=== PATIENT | female | born 1960 | race Two or more races ===

== ENCOUNTER 2021-06-06 20:11 | Emergency (ER) | payer OTHER ==
[~2021-06-06] VITALS: Ht 160 cm; Wt 104.3 kg
[2021-06-06 20:25] VITALS: BP 113/66
--- NOTE | 2021-06-06 20:25 | NUR ---
TO BED AMBULATORY
--- NOTE | 2021-06-06 20:40 | NUR ---
Dr. Loomis examining patient.
--- NOTE | 2021-06-06 20:41 | NUR ---
REPORTS DIZZINESS AND SYNCOPE EPISODE EARLIER TODAY AT HOME. CHECKED SUGAR AND READ 545 AT HOME, REPEATED AN HOUR LATER AND WAS STILL GREATER THAN 500. NO PREVIOUS HISTORY OF DIABETES. HAS HX OF CANCER AND LIVER CIRRHOSIS.
[2021-06-06] MEDS ORDERED: NACL 0.9% 1,000 ML IV ONE ×2 (20:45→21:50)
[2021-06-06] MEDS ORDERED: MECLIZINE 25 MG TAB PO ONE (20:45)
[2021-06-06 21:28] LABS: BASOPHILS # (AUTO) 0.1 K/uL (0.00-0.22); BASOPHILS % (AUTO) 1.3 % (0.0-2.0); EOSINOPHILS # (AUTO) 0.1 K/uL (0-0.4); EOSINOPHILS % (AUTO) 2.9 % (0.0-4.0); HEMATOCRIT 36.8 % (36-48); HEMOGLOBIN 12.6 g/dL (12.0-16.0); LYMPHOCYTES # (AUTO) 1.7 K/uL (2.5-16.5); LYMPHOCYTES % (AUTO) 35.6 % (20.5-51.1); MEAN CORPUSCULAR HEMOGLOBIN 29 pg (27-31); MEAN CORPUSCULAR HGB CONC 34 g/dL (33-37); MEAN CORPUSCULAR VOLUME 83.6 fL (80-94); MONOCYTES # (AUTO) 0.5 K/uL (0.8-1.0); MONOCYTES % (AUTO) 9.7 % (1.7-9.3); NEUTROPHILS # (AUTO) 2.5 K/uL (1.8-7.7); NEUTROPHILS % (AUTO) 50.5 % (42.2-75.2); PLATELET COUNT (AUTO) 149 K/uL (140-450); RED CELL DISTRIBUTION WIDTH 16.8 % (11.6-13.7); WHITE BLOOD COUNT (AUTO) 4.9 K/uL (4.8-10.8)
[2021-06-06 21:46] LABS: ALBUMIN 3.2 g/dL (3.4-5.0); ANION GAP 12.6 (8-16); CARBON DIOXIDE 26.6 mmol/L (21-32); CREATININE 1.1 mg/dL (0.6-1.3); POTASSIUM 3.2 mmol/L (3.5-5.1); TOTAL BILIRUBIN 1.1 mg/dL (0.0-1.0)
[2021-06-06] MEDS ORDERED: METF-1243 PO (21:57)
[2021-06-06] MEDS ORDERED: CODE-107 PO (22:27)
[2021-06-06] MEDS ORDERED: PROMETH/CODEINE 6.25-10MG/5ML 5 ML UDC PO ONE (22:30)
[2021-06-06 22:33] LABS: APPEARANCE,URINE CLEAR (CLEAR); BILIRUBIN,URINE NEGATIVE (NEGATIVE); BLOOD, URINE NEGATIVE (NEGATIVE); COLOR,URINE YELLOW (YELLOW); LEUKOCYTE ESTERASE ,URINE NEGATIVE (NEGATIVE); NITRITE, URINE NEGATIVE (NEGATIVE); PH,URINE 5.5 (5.0-9.0); UGLUCOSE 3+ (NEGATIVE)
[2021-06-06 22:44] LABS: RBC,URINE 0-5 /HPF (0-5); WBC,URINE 0-5 /HPF (0-5)
[2021-06-06 22:45] LABS: CALCIUM OXALATE CRYSTALS,UR 0-5 /HPF (None Seen)
--- NOTE | 2021-06-06 23:02 | NUR ---
PATIENT CLEARED FOR DISHCARGE AT THIS TIME. ADVISED TO FOLLOW UP WITH PCP AND RETURN IF CONDITION WORSENS. NO OTHER COMPLAINTS OR CONCERNS AT THIS TIME FOLLOWING DISCHARGE TEACHING.
[2021-06-06 23:03] VITALS: BP 122/73
[2021-06-07] MEDS ORDERED: LANC1COM6 MC (16:56)
[2021-06-07] MEDS ORDERED: BLOO1EAC9 MC (16:56)
[2021-06-07] MEDS ORDERED: AMOX-1000 PO (16:56)
== END 2021-06-06 23:02 | disposition home or self-care (01) ==
LOC: MED 20:11
DX: E11.65 Type 2 diabetes mellitus with hyperglycemia (principal); R42 Dizziness and giddiness; J18.9 Pneumonia, unspecified organism; Z79.899 Other long term (current) drug therapy
CPT/HCPCS: 36415; 71045; 80053; 81001; 83605; 83690; 85025; 93005; 96360; 99285; J7030; J8597; Q0092

== ENCOUNTER 2021-10-03 07:00 | Emergency (ER) | payer OTHER ==
[~2021-10-03] VITALS: Ht 162.6 cm; Wt 81.6 kg
[~2021-10-03 07:00] MED LIST: AMOX-1000 PO; BLOO1EAC9 MC; CODE-107 PO; LANC1COM6 MC; METF-1243 PO
[2021-10-03 07:04] VITALS: BP 144/76
--- NOTE | 2021-10-03 07:07 | NUR ---
TO BED AMBULATORY
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
[2021-10-03] MEDS ORDERED: LIDOCAINE 2% 1000 MG/50 ML VIAL INJ ONE (07:25)
--- NOTE | 2021-10-03 07:50 | NUR ---
pt's lac cleaned and irrigated with warm water and lac tray set up at bed side. ermd notified.
[2021-10-03] MEDS ORDERED: BACI-389 TP (08:02)
== END 2021-10-03 08:10 | disposition home or self-care (01) ==
LOC: MED 07:00
DX: S01.81XA Laceration without foreign body of other part of head, initial encounter (principal); Z79.899 Other long term (current) drug therapy; Z79.2 Long term (current) use of antibiotics; W22.8XXA Striking against or struck by other objects, initial encounter; Y92.89 Other specified places as the place of occurrence of the external cause; Y93.89 Activity, other specified; Y99.8 Other external cause status
CPT/HCPCS: 12011; 90471; 90715; 99283; J2001

== ENCOUNTER 2022-10-11 18:02 | Emergency (ER) | payer OTHER ==
[~2022-10-11] VITALS: Ht 165.1 cm; Wt 99.8 kg
[~2022-10-11 18:02] MED LIST changes: +BACI-389 TP
[2022-10-11 18:28] VITALS: BP 132/79; PULSE 95; RESP 16; TEMP 98.1; O2SAT 99
[2022-10-11] MEDS ORDERED: IBUP-2213 PO (20:04)
[2022-10-11] MEDS ORDERED: ACET-10509 PO (20:04)
--- NOTE | 2022-10-11 20:05 | NUR ---
PT TO LOBBY
--- NOTE | 2022-10-11 21:06 | NUR ---
2044- called for splinting, no response from pt. 2054- called for splinting, no response from pt. 2103- called for splinting, no response from pt. BS
--- NOTE | 2022-10-11 21:08 | NUR ---
ATTEMPTED TO CALL PATIENT. PATIENT ELOPED FROM FACILITY. DISCHARGE INSTRUCTIONS NOT GIVEN TO PATIENT. DR. ALFONSO NOTIFIED.
== END 2022-10-11 21:05 | disposition left against medical advice (07) ==
LOC: MED 18:02
DX: S63.591A Other specified sprain of right wrist, initial encounter (principal); S50.01XA Contusion of right elbow, initial encounter; M25.532 Pain in left wrist; Z79.899 Other long term (current) drug therapy; W01.0XXA Fall on same level from slipping, tripping and stumbling without subsequent striking against object, initial encounter; Y93.89 Activity, other specified; Y92.89 Other specified places as the place of occurrence of the external cause; Y99.8 Other external cause status
CPT/HCPCS: 73080; 73110; 99284

== ENCOUNTER 2023-07-08 19:09 | Inpatient (IN) | payer BC, OTHER ==
[~2023-07-08] VITALS: Ht 167.6 cm; Wt 98.9 kg
[~2023-07-08 19:09] MED LIST changes: +ACET-10509 PO; +IBUP-2213 PO
[2023-07-08 19:10] VITALS: BP 117/70; PULSE 94; RESP 22; TEMP 97.6; O2SAT 97
[2023-07-08 20:48] LABS: BASOPHILS % (AUTO) 1.3 % (0.0-2.0); EOSINOPHILS # (AUTO) 0.1 K/uL (0-0.4); EOSINOPHILS % (AUTO) 3.7 % (0.0-4.0); HEMATOCRIT 37.1 % (36-48); HEMOGLOBIN 12.6 g/dL (12.0-16.0); LYMPHOCYTES # (AUTO) 0.8 K/uL (2.5-16.5); LYMPHOCYTES % (AUTO) 36.5 % (20.5-51.1); MEAN CORPUSCULAR HEMOGLOBIN 30 pg (27-31); MEAN CORPUSCULAR HGB CONC 34 g/dL (33-37); MEAN CORPUSCULAR VOLUME 89.8 fL (80-94); MONOCYTES # (AUTO) 0.2 K/uL (0.8-1.0); MONOCYTES % (AUTO) 9.9 % (1.7-9.3); NEUTROPHILS % (AUTO) 48.6 % (42.2-75.2); PLATELET COUNT (AUTO) 94 K/uL (140-450); RED BLOOD CELL COUNT(AUTO) 4.13 MIL/uL (4.20-5.40); RED CELL DISTRIBUTION WIDTH 17.2 % (11.6-13.7); WHITE BLOOD COUNT (AUTO) 2.1 K/uL (4.8-10.8)
[2023-07-08] MEDS: ONDANSETRON 4 MG/2 ML VIAL IVP ONE (20:51)
[2023-07-08] MEDS: NACL 0.9% 500 ML IV ONE (20:55)
[2023-07-08 21:01] LABS: APPEARANCE,URINE SL CLOUDY (CLEAR); BILIRUBIN,URINE NEGATIVE (NEGATIVE); BLOOD, URINE 1+ (NEGATIVE); COLOR,URINE YELLOW (YELLOW); LEUKOCYTE ESTERASE ,URINE NEGATIVE (NEGATIVE); NITRITE, URINE NEGATIVE (NEGATIVE); PROTEIN,URINE NEGATIVE (NEGATIVE); UGLUCOSE 3+ (NEGATIVE)
[2023-07-08 21:04] LABS: ANION GAP 9.6 (8-16); CALCIUM 8.6 mg/dL (8.5-10.1); CARBON DIOXIDE 25.3 mmol/L (21-32); CREATININE 1.1 mg/dL (0.6-1.3); INR 1.16 (0.8-1.2); POTASSIUM 3.9 mmol/L (3.5-5.1); PROTHROMBIN TIME 12.1 secs (10.8-13.4)
[2023-07-08 21:11] LABS: LACTIC ACID 1.6 mmol/L (0.4-2.0)
[2023-07-08 21:12] LABS: BACTERIA,URINE FEW /HPF (None Seen); SQUAMOUS EPITHELIAL CELL,UR 4-10 (MOD) /LPF (0-3 (FEW)); WBC,URINE 0-5 /HPF (0-5)
[2023-07-08 21:17] LABS: ALANINE AMINOTRANSFERASE 36 U/L (12-78); ALBUMIN 2.2 g/dL (3.4-5.0); ALKALINE PHOSPHATASE 169 U/L (50-136); ASPARTATE AMINOTRANSFERASE 66 U/L (15-37); BILIRUBIN,DIRECT 0.4 mg/dL (0.0-0.3); LIPASE 31 U/L (16-77); MAGNESIUM 1.7 mg/dL (1.8-2.4); PHOSPHORUS 1.9 mg/dL (2.5-4.9); TOTAL BILIRUBIN 0.7 mg/dL (0.0-1.0); TOTAL PROTEIN, SERUM 7.1 g/dL (6.4-8.2)
[2023-07-09] VITALS (7 sets, daily range): BP systolic 103–121; BP diastolic 57–68; PULSE 83–96; RESP 18–20; TEMP 97.2–97.6; O2SAT 96–98
[2023-07-09] MEDS ORDERED: cefTRIAXone 1,000 MG VIAL ONE (00:34)
[2023-07-09] MEDS ORDERED: HYDROcodone/APAP 5/325 MG 1 TAB TAB PO PRN (00:40)
[2023-07-09] MEDS ORDERED: POTASSIUM CHLORIDE 10 MEQ TABER PO PRN (00:40)
[2023-07-09] MEDS ORDERED: VANCOMYCIN PER PHARMACY MC PRN (00:40)
[2023-07-09] MEDS ORDERED: VANCOMYCIN 1,000 MG VIAL ONE (02:11)
[2023-07-09] MEDS: VANCOMYCIN 1GM/DEXT 5% PREMIX 200 ML IV ONE (02:15)
[2023-07-09] MEDS: ACETAMINOPHEN 325 MG TAB PO PRN (04:08)
[2023-07-09 08:18] LABS: ANION GAP 9.7 (8-16); CALCIUM 7.9 mg/dL (8.5-10.1); CARBON DIOXIDE 24.3 mmol/L (21-32); CREATININE 0.8 mg/dL (0.6-1.3)
[2023-07-09] MEDS: MEDS-TO-BEDS MC SCH (09:00)
[2023-07-09] MEDS: MORPHINE SULFATE 4 MG/ML SYR IVP PRN (11:10)
[2023-07-09] MEDS: ONDANSETRON 4 MG/2 ML VIAL IVP PRN (12:00)
[2023-07-09] MEDS ORDERED: DEXTROSE 50% 50 ML SYR IVP PRN (12:35)
[2023-07-09] MEDS: INSULIN LANTUS 100 UNITS/ML 10 ML VIAL SUBQ SCH (13:11)
[2023-07-09] MEDS ORDERED: VANCOMYCIN 750 MG in DEXTROSE 5% 250 ML IV SCH (14:00)
[2023-07-09] MEDS: VANCOMYCIN 1,000 MG in DEXTROSE 5% 250 ML IV SCH (14:47)
[2023-07-09] MEDS: BLOOD GLUCOSE MONITORING 1 DEV DEV FS SCH (16:30)
[2023-07-09] MEDS: INSULIN LISPRO SLIDING SCALE 100 UNITS/ML VIAL SUBQ PRN (17:32)
[2023-07-10] VITALS (7 sets, daily range): BP systolic 107–147; BP diastolic 56–70; PULSE 78–115; RESP 18–20; TEMP 97.6–98.6; O2SAT 95–98
[2023-07-10 06:43] LABS: BASOPHILS % (AUTO) 0.6 % (0.0-2.0); EOSINOPHILS # (AUTO) 0.1 K/uL (0-0.4); EOSINOPHILS % (AUTO) 4.1 % (0.0-4.0); HEMATOCRIT 35.4 % (36-48); HEMOGLOBIN 12.1 g/dL (12.0-16.0); LYMPHOCYTES # (AUTO) 0.9 K/uL (2.5-16.5); LYMPHOCYTES % (AUTO) 27.9 % (20.5-51.1); MEAN CORPUSCULAR HEMOGLOBIN 30 pg (27-31); MEAN CORPUSCULAR HGB CONC 34 g/dL (33-37); MEAN CORPUSCULAR VOLUME 89.2 fL (80-94); MONOCYTES # (AUTO) 0.3 K/uL (0.8-1.0); MONOCYTES % (AUTO) 7.8 % (1.7-9.3); NEUTROPHILS % (AUTO) 59.6 % (42.2-75.2); PLATELET COUNT (AUTO) 95 K/uL (140-450); RED BLOOD CELL COUNT(AUTO) 3.97 MIL/uL (4.20-5.40); RED CELL DISTRIBUTION WIDTH 17.2 % (11.6-13.7); WHITE BLOOD COUNT (AUTO) 3.3 K/uL (4.8-10.8)
[2023-07-10 07:05] LABS: ALBUMIN 2.1 g/dL (3.4-5.0); ANION GAP 11.3 (8-16); CALCIUM 8.1 mg/dL (8.5-10.1); CARBON DIOXIDE 24.6 mmol/L (21-32); CREATININE 0.6 mg/dL (0.6-1.3); POTASSIUM 3.9 mmol/L (3.5-5.1); TOTAL PROTEIN, SERUM 6.8 g/dL (6.4-8.2)
[2023-07-10] MEDS: MEDS-TO-BEDS MC SCH (08:06)
[2023-07-10] MEDS: VANCOMYCIN 1.25GM PREMIX 250 ML IV SCH (13:59)
[2023-07-10] MEDS: INSULIN LANTUS 100 UNITS/ML 10 ML VIAL SUBQ SCH (22:08)
[2023-07-11 07:33] LABS: BASOPHILS % (AUTO) 0.9 % (0.0-2.0); EOSINOPHILS # (AUTO) 0.1 K/uL (0-0.4); EOSINOPHILS % (AUTO) 3.5 % (0.0-4.0); HEMOGLOBIN 12.4 g/dL (12.0-16.0); LYMPHOCYTES # (AUTO) 1.2 K/uL (2.5-16.5); LYMPHOCYTES % (AUTO) 42.7 % (20.5-51.1); MEAN CORPUSCULAR HEMOGLOBIN 31 pg (27-31); MEAN CORPUSCULAR HGB CONC 35 g/dL (33-37); MEAN CORPUSCULAR VOLUME 88.8 fL (80-94); MONOCYTES # (AUTO) 0.3 K/uL (0.8-1.0); MONOCYTES % (AUTO) 10.2 % (1.7-9.3); NEUTROPHILS # (AUTO) 1.2 K/uL (1.8-7.7); NEUTROPHILS % (AUTO) 42.7 % (42.2-75.2); PLATELET COUNT (AUTO) 101 K/uL (140-450); RED BLOOD CELL COUNT(AUTO) 4.05 MIL/uL (4.20-5.40); RED CELL DISTRIBUTION WIDTH 17.2 % (11.6-13.7); WHITE BLOOD COUNT (AUTO) 2.8 K/uL (4.8-10.8)
[2023-07-11 07:54] LABS: ANION GAP 10.7 (8-16); CALCIUM 8.5 mg/dL (8.5-10.1); CARBON DIOXIDE 25.7 mmol/L (21-32); CREATININE 0.6 mg/dL (0.6-1.3); POTASSIUM 4.4 mmol/L (3.5-5.1); TOTAL BILIRUBIN 0.8 mg/dL (0.0-1.0); TOTAL PROTEIN, SERUM 6.8 g/dL (6.4-8.2)
[2023-07-11 08:00] VITALS: BP 119/60; PULSE 98; RESP 18; TEMP 97.4; O2SAT 95
[2023-07-11] MEDS ORDERED: GAUZE TP PRN (11:35)
[2023-07-11 12:00] VITALS: BP 119/60; PULSE 98; RESP 18; TEMP 97.4; O2SAT 95
[2023-07-11 16:00] VITALS: BP 113/65; PULSE 83; RESP 18; TEMP 97.3; O2SAT 94
[2023-07-11 20:00] VITALS: BP 103/61; PULSE 75; RESP 18; TEMP 98; O2SAT 93
[2023-07-12 04:00] VITALS: BP_SYST 103; BP_SYST 117; BP_DIAS 61; BP_DIAS 63; PULSE 75; PULSE 93; RESP 18; TEMP 97.8; TEMP 98; O2SAT 93; O2SAT 97
[2023-07-12 06:45] LABS: BASOPHILS % (AUTO) 0.8 % (0.0-2.0); EOSINOPHILS # (AUTO) 0.1 K/uL (0-0.4); EOSINOPHILS % (AUTO) 3.8 % (0.0-4.0); HEMATOCRIT 33.9 % (36-48); HEMOGLOBIN 11.6 g/dL (12.0-16.0); LYMPHOCYTES # (AUTO) 1.2 K/uL (2.5-16.5); LYMPHOCYTES % (AUTO) 42.5 % (20.5-51.1); MEAN CORPUSCULAR HEMOGLOBIN 30 pg (27-31); MEAN CORPUSCULAR HGB CONC 34 g/dL (33-37); MEAN CORPUSCULAR VOLUME 89.1 fL (80-94); MONOCYTES # (AUTO) 0.3 K/uL (0.8-1.0); MONOCYTES % (AUTO) 11.3 % (1.7-9.3); NEUTROPHILS # (AUTO) 1.2 K/uL (1.8-7.7); NEUTROPHILS % (AUTO) 41.6 % (42.2-75.2); PLATELET COUNT (AUTO) 102 K/uL (140-450); RED CELL DISTRIBUTION WIDTH 16.9 % (11.6-13.7); WHITE BLOOD COUNT (AUTO) 2.8 K/uL (4.8-10.8)
[2023-07-12 07:00] LABS: ANION GAP 8.7 (8-16); CALCIUM 8.3 mg/dL (8.5-10.1); CARBON DIOXIDE 27.1 mmol/L (21-32); CREATININE 0.6 mg/dL (0.6-1.3); POTASSIUM 3.8 mmol/L (3.5-5.1); TOTAL BILIRUBIN 0.7 mg/dL (0.0-1.0); TOTAL PROTEIN, SERUM 6.4 g/dL (6.4-8.2)
[2023-07-12 08:00] VITALS: BP 125/71; PULSE 85; PULSE 90; RESP 18; TEMP 97.1; O2SAT 95; O2SAT 97
[2023-07-12] MEDS: GAUZE TP SCH (13:00)
[2023-07-12] MEDS: INSULIN LANTUS 100 UNITS/ML 10 ML VIAL SUBQ SCH (19:01)
[2023-07-12 20:00] VITALS: BP 111/55; PULSE 86; RESP 18; TEMP 97.1; O2SAT 100; O2SAT 97
[2023-07-13] VITALS: BP 100/62; PULSE 94; RESP 16; TEMP 98.4; O2SAT 96
[2023-07-13 07:19] LABS: BASOPHILS % (AUTO) 0.7 % (0.0-2.0); EOSINOPHILS # (AUTO) 0.1 K/uL (0-0.4); EOSINOPHILS % (AUTO) 4.4 % (0.0-4.0); HEMATOCRIT 33.6 % (36-48); HEMOGLOBIN 11.6 g/dL (12.0-16.0); LYMPHOCYTES % (AUTO) 41.3 % (20.5-51.1); MEAN CORPUSCULAR HEMOGLOBIN 31 pg (27-31); MEAN CORPUSCULAR HGB CONC 35 g/dL (33-37); MEAN CORPUSCULAR VOLUME 88.8 fL (80-94); MONOCYTES # (AUTO) 0.3 K/uL (0.8-1.0); MONOCYTES % (AUTO) 11.3 % (1.7-9.3); NEUTROPHILS # (AUTO) 1.1 K/uL (1.8-7.7); NEUTROPHILS % (AUTO) 42.3 % (42.2-75.2); PLATELET COUNT (AUTO) 113 K/uL (140-450); RED BLOOD CELL COUNT(AUTO) 3.79 MIL/uL (4.20-5.40); WHITE BLOOD COUNT (AUTO) 2.5 K/uL (4.8-10.8)
[2023-07-13 08:00] VITALS: BP 107/66; PULSE 93; RESP 18; TEMP 98.5; O2SAT 98
[2023-07-13 08:07] LABS: ANION GAP 9.6 (8-16); CALCIUM 8.2 mg/dL (8.5-10.1); CREATININE 0.6 mg/dL (0.6-1.3); POTASSIUM 3.6 mmol/L (3.5-5.1); TOTAL BILIRUBIN 0.7 mg/dL (0.0-1.0); TOTAL PROTEIN, SERUM 6.4 g/dL (6.4-8.2)
[2023-07-13] MEDS ORDERED: CEFD300C3 PO (15:37)
[2023-07-13] MEDS ORDERED: BIFI4CAP PO (15:37)
[2023-07-13] MEDS ORDERED: DOXY-690 PO (15:37)
[2023-07-13 16:00] VITALS: BP 105/63; PULSE 88; RESP 18; TEMP 98.6; O2SAT 98
== END 2023-07-13 17:40 | disposition home health service (06) | DRG 372 ==
LOC: MED 19:09 → MTU 07-09 00:43
PROVIDERS: ADMIT Student in an Organized Health Care Education/Training Program; ATTEND Student in an Organized Health Care Education/Training Program
DX: A04.9 Bacterial intestinal infection, unspecified (principal); K56.7 Ileus, unspecified; L03.116 Cellulitis of left lower limb; R65.10 Systemic inflammatory response syndrome (SIRS) of non-infectious origin without acute organ dysfunction; R64 Cachexia; E11.65 Type 2 diabetes mellitus with hyperglycemia; K74.60 Unspecified cirrhosis of liver; Z79.899 Other long term (current) drug therapy; Z79.1 Long term (current) use of non-steroidal anti-inflammatories (NSAID)
CPT/HCPCS: 36415; 71045; 80048; 80053; 80076; 80202; 81001; 82803; 82948; 83605; 83690; 83735; 84100; 84484; 85025; 85610; 85651; 86140; 87040; 87081; 93005; 96365; 96375; 99291; J0696; J1815; J2270; J2405; J3370; J3372; J7060; Q0092